=== PATIENT | female | born 1970 | race African-American/Black ===

== ENCOUNTER 2017-03-14 21:20 | Emergency (ER) | payer OTHER | END 2017-03-14 23:39 | disposition home or self-care (01) | LOC: ER 21:20 | DX: S46.911A Strain of unspecified muscle, fascia and tendon at shoulder and upper arm level, right arm, initial encounter (principal); Z88.1 Allergy status to other antibiotic agents; V49.9XXA Car occupant (driver) (passenger) injured in unspecified traffic accident, initial encounter | CPT/HCPCS: 71010; 93005; 99285 ==